=== PATIENT | female | born 1980 | race African-American/Black ===

== ENCOUNTER 2023-07-02 18:17 | Inpatient (IN) | payer OTHER ==
[2023-07-02 20:30] LABS: HEMATOCRIT 23.7 % (32.4-45.2); MEAN CELL VOLUME 59.6 fl (80-96); MEAN PLT VOLUME 8.8 fl (7.5-11.1); PLATELET COUNT 474 10^3/uL (134-434); RBC 3.98 M/mm3 (3.60-5.2); RDW 20.9 % (11.6-15.6); WHITE BLOOD COUNT 9.3 K/mm3 (4.0-10.0)
[2023-07-02 20:38] LABS: MCH 17.3 pg (25.7-33.7)
[2023-07-02 20:40] LABS: HEMOGLOBIN 6.9 GM/dL (10.7-15.3)
[2023-07-02 20:51] LABS: POTASSIUM 3.6 mmol/L (3.5-5.1)
[2023-07-02 20:53] LABS: ALBUMIN 3.6 g/dl (3.4-5.0); BLOOD UREA NITROGEN 10.1 mg/dL (7-18); CALCIUM 8.9 mg/dL (8.5-10.1)
[2023-07-02 20:58] LABS: BILIRUBIN,TOTAL 0.2 mg/dL (0.2-1); TOT PROT 8.2 g/dl (6.4-8.2)
[2023-07-02 21:34] LABS: ANISOCYTOSIS 1+; MACROCYTOSIS 0; PLATELET ESTIMATE INCREASED
[2023-07-02] MEDS ORDERED: morphine CARPU-JECT 4 MG/1 ML DISP.SYRIN IVPUSH ONE (21:34)
[2023-07-02] MEDS ORDERED: LIDOCAINE 5% TOPICAL PATCH TP ONE (21:34)
[2023-07-02] MEDS ORDERED: morphine SULFATE 4 MG/ML VIAL ONE (21:41)
[2023-07-02] MEDS ORDERED: ENOXAPARIN NA (PORCINE) 120 MG/0.8 ML DISP.SYRIN SQ ONE (22:45)
[2023-07-02 23:07] LABS: INR 1.2 (0.83-1.09); PROTHROMBIN TIME (PATIENT) 13.9 SEC (9.7-13.0)
[2023-07-02 23:10] LABS: ACTIVATED PTT 30.7 SECONDS (25.2-36.5)
[2023-07-02] MEDS ORDERED: ACETAMINOPHEN 1000 MG/100 ML BAG IVPB ONE (23:12)
[2023-07-02] MEDS ORDERED: ENOXAPARIN NA (PORCINE) 100 MG/1 ML DISP.SYRIN SQ ONE (23:43)
[2023-07-02] MEDS ORDERED: ACETAMINOPHEN INJECTION 100 ML IVPB ONE (23:43)
[2023-07-02] MEDS ORDERED: LIDOCAINE 5% TOPICAL PATCH ONE (23:43)
[2023-07-03] MEDS ORDERED: ENOXAPARIN NA (PORCINE) 100 MG/1 ML DISP.SYRIN SQ ONE (09:28)
[2023-07-03] MEDS ORDERED: FERROUS SO4 325 MG TABLET (FP) ONE (09:28)
[2023-07-03] MEDS ORDERED: POLYETHYLENE GLYCOL (HEALTHYLAX) 3350 17 GM PACKET ONE (09:28)
[2023-07-03] MEDS: ENOXAPARIN NA (PORCINE) 100 MG/1 ML DISP.SYRIN SQ SCH (09:44)
[2023-07-03] MEDS: POLYETHYLENE GLYCOL (HEALTHYLAX) 3350 17 GM PACKET PO SCH (09:44)
[2023-07-03] MEDS: FERROUS SO4 325 MG TABLET (FP) PO SCH (09:44)
[2023-07-03] MEDS ORDERED: ENOXAPARIN NA (PORCINE) 100 MG/1 ML DISP.SYRIN SQ SCH (10:00)
[2023-07-03 13:55] LABS: CALCIUM 8.8 mg/dL (8.5-10.1)
[2023-07-03 13:56] LABS: ALBUMIN 3.3 g/dl (3.4-5.0); BLOOD UREA NITROGEN 7.5 mg/dL (7-18); MAGNESIUM 1.9 mg/dL (1.8-2.4)
[2023-07-03 13:59] LABS: CREATININE 0.9 mg/dL (0.55-1.3); PHOSPHOROUS 2.4 mg/dL (2.5-4.9)
[2023-07-03 14:00] LABS: BILIRUBIN,TOTAL 1.3 mg/dL (0.2-1); TOT PROT 7.8 g/dl (6.4-8.2)
[2023-07-03 18:56] VITALS: BMI 39.6
[2023-07-04] MEDS: ENOXAPARIN NA (PORCINE) 100 MG/1 ML DISP.SYRIN SQ SCH ×3 (00:07→22:15)
[2023-07-04 08:18] LABS: INR 1.3 (0.83-1.09)
[2023-07-04 08:21] LABS: ACTIVATED PTT 37.3 SECONDS (25.2-36.5)
[2023-07-04 08:31] LABS: ALBUMIN 3.2 g/dl (3.4-5.0); BLOOD UREA NITROGEN 7.4 mg/dL (7-18)
[2023-07-04 08:32] LABS: CALCIUM 8.7 mg/dL (8.5-10.1); MAGNESIUM 1.7 mg/dL (1.8-2.4)
[2023-07-04 08:34] LABS: PHOSPHOROUS 2.6 mg/dL (2.5-4.9)
[2023-07-04 08:35] LABS: TOT PROT 7.7 g/dl (6.4-8.2)
[2023-07-04 08:37] LABS: HEMATOCRIT 31.8 % (32.4-45.2); MCH 20.6 pg (25.7-33.7); MCHC 31.4 g/dl (32.0-36.0); MEAN CELL VOLUME 65.5 fl (80-96); MEAN PLT VOLUME 8.8 fl (7.5-11.1); PLATELET COUNT 420 10^3/uL (134-434); RBC 4.85 M/mm3 (3.60-5.2); RDW 27.4 % (11.6-15.6); WHITE BLOOD COUNT 10.6 K/mm3 (4.0-10.0)
[2023-07-04 08:38] LABS: BILIRUBIN,TOTAL 1.3 mg/dL (0.2-1)
[2023-07-04 10:30] LABS: ANISOCYTOSIS 0; MACROCYTOSIS 0; OVALOCYTE 1+
[2023-07-04] MEDS: FERROUS SO4 325 MG TABLET (FP) PO SCH (10:57)
[2023-07-04] MEDS: POLYETHYLENE GLYCOL (HEALTHYLAX) 3350 17 GM PACKET PO SCH (10:58)
[2023-07-04] MEDS: IRON SUCROSE INJECTION 200 MG in SODIUM CHLORIDE 90 ML IVPB SCH (18:49)
[2023-07-05] MEDS: IRON SUCROSE INJECTION 200 MG in SODIUM CHLORIDE 90 ML IVPB SCH (06:55)
[2023-07-05 07:57] LABS: POTASSIUM 3.7 mmol/L (3.5-5.1)
[2023-07-05 08:00] LABS: BLOOD UREA NITROGEN 10.2 mg/dL (7-18); CALCIUM 8.6 mg/dL (8.5-10.1); MAGNESIUM 1.8 mg/dL (1.8-2.4)
[2023-07-05 08:01] LABS: ALBUMIN 2.9 g/dl (3.4-5.0)
[2023-07-05 08:04] LABS: CREATININE 0.9 mg/dL (0.55-1.3); PHOSPHOROUS 2.7 mg/dL (2.5-4.9)
[2023-07-05 08:05] LABS: TOT PROT 7.3 g/dl (6.4-8.2)
[2023-07-05 08:30] LABS: HEMATOCRIT 29.9 % (32.4-45.2); HEMOGLOBIN 9.6 GM/dL (10.7-15.3); MCH 21.1 pg (25.7-33.7); MEAN CELL VOLUME 65.9 fl (80-96); MEAN PLT VOLUME 9.3 fl (7.5-11.1); PLATELET COUNT 424 10^3/uL (134-434); RBC 4.54 M/mm3 (3.60-5.2); RDW 27.4 % (11.6-15.6); WHITE BLOOD COUNT 10.8 K/mm3 (4.0-10.0)
[2023-07-05] MEDS: ENOXAPARIN NA (PORCINE) 100 MG/1 ML DISP.SYRIN SQ SCH ×2 (10:08→21:23)
[2023-07-05] MEDS: POLYETHYLENE GLYCOL (HEALTHYLAX) 3350 17 GM PACKET PO SCH (10:09)
[2023-07-05] MEDS: FERROUS SO4 325 MG TABLET (FP) PO SCH (10:09)
[2023-07-06] MEDS: IRON SUCROSE INJECTION 200 MG in SODIUM CHLORIDE 90 ML IVPB SCH (06:45)
[2023-07-06 07:37] LABS: HEMATOCRIT 30.4 % (32.4-45.2); HEMOGLOBIN 9.7 GM/dL (10.7-15.3); MCH 20.9 pg (25.7-33.7); MCHC 32.1 g/dl (32.0-36.0); MEAN CELL VOLUME 65.3 fl (80-96); MEAN PLT VOLUME 8.7 fl (7.5-11.1); PLATELET COUNT 402 10^3/uL (134-434); RBC 4.65 M/mm3 (3.60-5.2); RDW 27.8 % (11.6-15.6); WHITE BLOOD COUNT 8.3 K/mm3 (4.0-10.0)
[2023-07-06 07:57] LABS: POTASSIUM 3.8 mmol/L (3.5-5.1)
[2023-07-06 07:59] LABS: ALBUMIN 2.9 g/dl (3.4-5.0); CALCIUM 8.4 mg/dL (8.5-10.1)
[2023-07-06 08:00] LABS: BLOOD UREA NITROGEN 9.9 mg/dL (7-18)
[2023-07-06 08:01] LABS: CREATININE 0.9 mg/dL (0.55-1.3); PHOSPHOROUS 2.7 mg/dL (2.5-4.9)
[2023-07-06 08:04] LABS: BILIRUBIN,TOTAL 0.6 mg/dL (0.2-1); TOT PROT 7.1 g/dl (6.4-8.2)
[2023-07-06] MEDS: POLYETHYLENE GLYCOL (HEALTHYLAX) 3350 17 GM PACKET PO SCH (09:11)
[2023-07-06] MEDS: FERROUS SO4 325 MG TABLET (FP) PO SCH (09:11)
[2023-07-06] MEDS ORDERED: APIXABAN 5 MG TABLET PO SCH (10:00)
[2023-07-06 10:08] VITALS: TEMP 98.6
[2023-07-06 15:28] VITALS: BP 121/69; PULSE 73; RESP 21
[2023-07-08 19:06] LABS: DRVVT - 46.4 sec (0.0-47.0); HEXAGONAL PHASE PHOSPHOLIPID 6 sec (0-11)
== END 2023-07-06 18:22 | disposition home or self-care (01) | DRG 134 ==
LOC: JER 18:17 → JERBED 22:54 → J4W 07-03 18:17
PROVIDERS: ADMIT Internal Medicine; ATTEND Internal Medicine
PROC: 30233N1 Transfusion of Nonautologous Red Blood Cells into Peripheral Vein, Percutaneous Approach (ICD-10-PCS; principal; 2023-07-03)
DX: I26.99 Other pulmonary embolism without acute cor pulmonale (principal); D50.9 Iron deficiency anemia, unspecified; J98.11 Atelectasis; E66.9 Obesity, unspecified; Z68.34 Body mass index [BMI] 34.0-34.9, adult; R07.81 Pleurodynia
CPT/HCPCS: 36415; 36430; 71046-TC-FY; 71275-TC; 80053; 81240; 81241; 82728; 83540; 83550; 83615; 83735; 84100; 84484; 84703; 85025; 85027; 85045; 85300; 85379; 85610; 85613; 85730; 85732; 86850; 86900; 86901; 86922; 93005; 93010; 93306-TC; 93970-TC; 94010; 94761; 99285-25; J1756; P9058; Q9967

== ENCOUNTER 2024-01-13 11:30 | Day surgery (SDC) | payer OTHER ==
[~2024-01-13 11:30] MED LIST: FERRIC DERISOMALTOSE IVPB ONE; SODIUM CHLORIDE IVPB ONE
[2024-01-13 12:12] VITALS: RESP 18; TEMP 98.3
[2024-01-13] MEDS: FERRIC DERISOMALTOSE IVPB ONE (12:27)
[2024-01-13] MEDS: SODIUM CHLORIDE IVPB ONE (12:27)
[2024-01-13 13:10] VITALS: BP 101/47; PULSE 68
== END 2024-01-13 13:30 | disposition home or self-care (01) ==
LOC: JONCNONCHE 11:30 → J7W 11:30 → JONCNONCHE 13:30
PROVIDERS: ATTEND Nurse Practitioner Family
PROC: 3E033GC Introduction of Other Therapeutic Substance into Peripheral Vein, Percutaneous Approach (ICD-10-PCS; principal; 2024-01-13)
DX: D50.9 Iron deficiency anemia, unspecified (principal)
CPT/HCPCS: 96365; J1437

== ENCOUNTER 2025-01-25 08:53 | Day surgery (SDC) | payer OTHER ==
[2025-01-25] MEDS: SODIUM CHLORIDE IVPB ONE (09:48)
[2025-01-25] MEDS: FERRIC DERISOMALTOSE IVPB ONE (09:48)
[2025-01-25 12:24] VITALS: TEMP 98.3
[2025-01-25 12:43] VITALS: BP 112/62; PULSE 63; RESP 18
== END 2025-01-25 11:30 | disposition home or self-care (01) ==
LOC: JONCNONCHE 08:53
PROVIDERS: ATTEND Nurse Practitioner Family
PROC: 3E033GC Introduction of Other Therapeutic Substance into Peripheral Vein, Percutaneous Approach (ICD-10-PCS; principal; 2025-01-25)
DX: D50.9 Iron deficiency anemia, unspecified (principal)
CPT/HCPCS: 96365; J1437

== ENCOUNTER 2025-08-02 09:10 | Day surgery (SDC) | payer OTHER ==
[2025-08-02] MEDS: FERRIC DERISOMALTOSE IVPB ONE (09:50)
[2025-08-02] MEDS: SODIUM CHLORIDE IVPB ONE (09:50)
[2025-08-02 13:56] VITALS: RESP 20; TEMP 98.6
[2025-08-02 13:59] VITALS: BP 126/64; PULSE 56
== END 2025-08-02 10:45 | disposition home or self-care (01) ==
LOC: JONCNONCHE 09:10
PROC: 3E033GC Introduction of Other Therapeutic Substance into Peripheral Vein, Percutaneous Approach (ICD-10-PCS; principal; 2025-08-02)
DX: D50.9 Iron deficiency anemia, unspecified (principal)
CPT/HCPCS: 96365; J1437